=== PATIENT | female | born 1995 | race Caucasian/White ===

== ENCOUNTER 2016-10-29 21:40 | Emergency (ER) | payer OTHER ==
[2016-10-29 21:47] VITALS: RESP 16
--- NOTE | 2016-10-29 22:00 | EDPHY ---
H & P Stated Complaint: R neck pain with radiation to R shoulder, denies trauma HPI/ROS: HPI CHIEF COMPLAINT: Right neck pain HISTORY OF PRESENT ILLNESS: This patient very pleasant 20-year-old female, denies any significant medical history except for asthma, she presents emergency room with right-sided sharp stabbing neck pain that radiates into her right scapula. She states he woke up with a [place] in her neck" she tells me that the pain progressively got better throughout the day, however she went to walk her dog tonight the dog pulled her on her leash causing her to twist her neck and now she is 10/10 right-sided sharp stabbing neck pain worse when she moves her head to the right. The pain radiates into her right scapula. Does not go down her arm, she denies arm weakness, denies materials supervisor strength weakness. Denies numbness or tingling. Denies direct trauma to her neck. Denies trouble swallowing. Past Medical History: Asthma Past Surgical History: denies significant surgical history Social History: Denies daily use drugs alcohol tobacco products Family History: Noncontributory ROS REVIEW OF SYSTEMS: A comprehensive 10 point review of systems is otherwise negative aside from elements mentioned in the history of present illness. Exam Constitutional triage nursing summary reviewed, vital signs reviewed, awake/ alert. Eyes normal conjunctivae and sclera, EOMI, PERRLA. HENT cervical spine: No significant midline tenderness, with range of motion with neck turning to the right the patient is sharp stabbing pain to the right scapula, good materials supervisor strength, full range of motion of both arms, no upper extremity weakness, sensation intact normal inspection, atraumatic, moist mucus membranes, no epistaxis, neck supple/ no meningismus, no raccoon eyes. No carotid bruit. Respiratory clear to auscultation bilaterally, normal breath sounds, no respiratory distress, no wheezing. Cardiovascular rate normal, regular rhythm, no murmur, no edema, distal pulses normal. Gastrointestinal soft, non-tender, no rebound, no guarding, normal bowel sounds, no distension, no pulsatile mass. Genitourinary no CVA tenderness. Musculoskeletal no midline vertebral tenderness, full range of motion, no calf swelling, no tenderness of extremities, no meningismus, good pulses, neurovascularly intact. Skin pink, warm, & dry, no rash, skin atraumatic. Neurologic awake, alert and oriented x 3, AAOx3, moves all 4 extremities equally, motor intact, sensory intact, CN II-XII intact, normal cerebellar, normal vision, normal speech. Psychiatric normal mood/affect. Heme/Lymph/Immune no lymphadenopathy. Differential Diagnosis: Includes but is not limited to in a particular order Torticollins, nerve root compression, DJD, annular tear, cervical radiculopathy Medical Decision Making: this patient had an IV established receive IV fentanyl for acute pain control, IV Valium for muscle relaxation, IV Toradol for anti- inflammatory. She will need a CT cervical spine. No indication to do an MRI of her C spine at this time. Re-evaluation: CT scan of the cervical spine without IV contrast The results of the study are negative for acute traumatic injury specifically no malalignment or compression fracture The study was read by Dr. Avendano I viewed the images myself on the PACS system. 0137: re-evaluation at this time; she is feeling better after IV fentanyl she is resting comfortably no acute distress. She does feel much better. She agrees for discharge. She would like a prescription for [place], Valium, ibuprofen. I did tell her that if she has worsening pain in 3-5 days she should have an MRI of her cervical spine. At this time she has no arm weakness , no numbness or tingling, her pain is well controlled. She has good materials supervisor strength. She understands return emergency room if she develops any worsening symptoms questions or concerns. Source: Patient - Personal History LMP (Females 10-55): 15-21 Days Ago Current Tetanus/Diphtheria Vaccine: Yes Current Tetanus Diphtheria and Acellular Pertussis (TDAP): Yes Tetanus Vaccine Date: less than 5 years - Medical/Surgical History Hx Asthma: Yes Hx Chronic Respiratory Disease: No Hx Diabetes: No Hx Cardiac Disease: No Hx Renal Disease: No Hx Cirrhosis: No Hx Alcoholism: No Hx HIV/AIDS: No Hx Splenectomy or Spleen Trauma: No Other PMH: asthma, right armpit sweating surgery with post op infection - Social History Smoking Status: Never smoked Constitutional: Initial Vital Signs Temperature (C) 36.7 C 10/29/16 21:44 Heart Rate 76 10/29/16 21:44 Respiratory Rate 16 10/29/16 21:44 Blood Pressure 134/94 H 10/29/16 21:44 O2 Sat (%) 98 10/29/16 21:44 O2 Delivery Mode Room Air Allergies/Adverse Reactions: No Known Allergies Allergy (Unverified 08/30/16 19:29) Home Medications: Medication Instructions Recorded Advair 250/50 (*) 08/30/16 Control 08/30/16 Diazepam [Valium 5 MG (*)] 5 mg PO TID PRN #15 tab 10/30/16 Hydrocodone/APAP 5/325 [[place] 1 - 2 tab PO Q4H PRN #10 tab 10/30/16 5/325] Ibuprofen [Motrin (*)] 800 mg PO Q6-8PRN #7 tab 10/30/16 Medical Decision Making - Data Points Medications Given: Discontinued Medications Diazepam (Valium Injection) 2.5 mg IVP EDNOW ONE Stop: 10/29/16 22:04 Last Admin: 10/29/16 22:26 Dose: 2.5 mg Fentanyl (Sublimaze) 100 mcg IVP EDNOW ONE Stop: 10/29/16 22:04 Last Admin: 10/29/16 22:23 Dose: 100 mcg Fentanyl (Sublimaze) 100 mcg IVP EDNOW ONE Stop: 10/30/16 00:58 Last Admin: 10/30/16 01:05 Dose: 100 mcg Sodium Chloride (Ns) 1,000 mls @ 0 mls/hr IV ONCE ONE PRN Reason: Wide Open Stop: 10/29/16 22:04 Last Admin: 10/29/16 22:20 Dose: 1,000 mls Ketorolac Tromethamine (Toradol) 30 mg IVP EDNOW ONE Stop: 10/29/16 22:04 Last Admin: 10/29/16 22:21 Dose: 30 mg Departure - Departure Disposition: Home, Routine, Self-Care Clinical Impression: Cervical radiculopathy Condition: Fair Instructions: Cervical Radiculopathy (ED), Neck Pain (ED), Acute Neck Pain (ED) Additional Instructions: 1.Return emergency room if he develops any worsening symptoms questions or concerns. 2. Take ibuprofen for anti-inflammatory pain medicine 3.Take [place] for severe pain 4.Valium for muscle spasms. 5. Do not drink alcohol while taking these medications stay well-hydrated. Prescriptions: Ibuprofen [Motrin (*)] 800 mg PO Q6-8PRN #7 tab Hydrocodone/APAP 5/325 [[place] 5/325] 1 - 2 tab PO Q4H PRN #10 tab PRN Reason: Pain, Moderate Diazepam [Valium 5 MG (*)] 5 mg PO TID PRN #15 tab PRN Reason: Spasms
[2016-10-29] MEDS ORDERED: NS 1,000 ML IV ONE (22:03)
[2016-10-29] MEDS ORDERED: KETOROLAC 30 MG/1 ML SDV IVP ONE (22:03)
[2016-10-29] MEDS ORDERED: DIAZEPAM 10 MG/2 ML SYR IVP ONE (22:03)
[2016-10-29] MEDS ORDERED: fentaNYL 100 MCG/2 ML INJ IVP ONE (22:03)
--- NOTE | 2016-10-29 22:35 | CT ---
CT Cervical Spine Without Contrast History: Right-sided neck pain, limited range of motion. Comparison: None available. Technique: Multislice helical CT through the cervical spine without contrast from the skull base to T 1. Soft tissue and bone evaluation is performed. Sagittal and coronal reconstructions are obtained an d reviewed. Dose reduction techniques were utilized. Findings: Cervical alignment is anatomic. No fracture is identified. Mild congenital spinal canal bev rowing is present. The relationship between the skull base and C1 is normal. Mild annular bulges are present from C3 through C7. The C1-C2 articulation is normal. The cervicothoracic junction is normal. There is no visible epidural or prevertebral hematoma. Impression: 1. No acute posttraumatic abnormality identified. If there is persistent pain or neurologic deficit, consider MRI and/or flexion and extension views if clinically indicated. 2. Mild congenital spinal canal narrowing. Findings discussed with Victor M Kraus today at 2230 hours.
[2016-10-30] MEDS ORDERED: fentaNYL 100 MCG/2 ML INJ IVP ONE (00:57)
[2016-10-30 01:47] VITALS: BP 110/72; PULSE 69; TEMP 98.2; O2SAT 98
== END 2016-10-30 01:46 | disposition home or self-care (01) ==
DX: M54.12 Radiculopathy, cervical region (principal); J45.909 Unspecified asthma, uncomplicated
CPT/HCPCS: 96374; J1885; J3010